=== PATIENT | female | born 1990 | race Two or more races ===

== ENCOUNTER 2017-03-08 09:16 | Emergency (ER) | payer MEDICAID, OTHER ==
[~2017-03-08] VITALS: Ht 149.9 cm; Wt 38.0 kg
[2017-03-08 09:50] VITALS: Ht 149.9 cm; Wt 38.0 kg
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
[2017-03-08] MEDS ORDERED: HYDROCODONE/APAP (5/325) TAB PO ONE (11:00)
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
[2017-03-08] MEDS ORDERED: NAPR-260 PO (13:21)
[2017-03-08] MEDS ORDERED: HYDR-906 PO (13:21)
[2017-03-08] MEDS ORDERED: CYCL-319 PO (13:21)
== END 2017-03-08 13:32 | disposition home or self-care (01) ==
LOC: FTE 09:16
DX: M54.2 Cervicalgia (principal); M25.511 Pain in right shoulder; R51 Headache; Z04.8 Encounter for examination and observation for other specified reasons
CPT/HCPCS: 70450; 72125; 73030; Z7610